=== PATIENT | male | born 1950 | race Caucasian/White ===

== ENCOUNTER 2020-09-20 15:20 | Emergency (ER) | payer OTHER ==
[2020-09-20] MEDS ORDERED: LACTATED RINGERS SOLUTION 1000 ML INFUS.BAG IV ONE (15:32)
[2020-09-20] MEDS ORDERED: ACETAMINOPHEN 1000 MG/100 ML VIAL (NON FORMULARY) IVPB ONE (15:32)
[2020-09-20 15:45] VITALS: BP 140/86; PULSE 91; TEMP 98.8; BMI 29.8
[2020-09-20] MEDS ORDERED: ACETAMINOPHEN INJECTION 100 ML IVPB ONE (15:46)
[2020-09-20 15:56] LABS: BASO % 0.5 % (0-2.0); HEMATOCRIT 37.1 % (35.4-49); HEMOGLOBIN 12.4 GM/dl (11.7-16.9); MCHC 33.3 g/dl (32.0-35.9); MEAN CELL VOLUME 99.1 fl (80-96); MEAN PLT VOLUME 7.6 fl (7.5-11.1); MONO % 11.1 % (3.8-10.2); NEUT % 63.4 % (42.8-82.8); PLATELET COUNT 262 K/MM3 (134-434); RBC 3.74 M/mm3 (4.00-5.60); RDW 11.9 % (11.9-15.9); WHITE BLOOD COUNT 6.1 K/mm3 (4.0-10.8)
[2020-09-20 16:10] LABS: ACTIVATED PTT 24.3 SECONDS (25.2-36.5)
[2020-09-20 16:14] LABS: INR 1.33 (0.82-1.09); PROTHROMBIN TIME (PATIENT) 14.6 SEC (10.2-13.0)
[2020-09-20 16:26] LABS: ALBUMIN 3.9 g/dl (3.4-5.0); BILIRUBIN,TOTAL 0.9 mg/dl (0.2-1); CALCIUM 8.8 mg/dl (8.5-10); POTASSIUM 4.1 mmol/L (3.5-5.1); TOT PROT 6.8 g/dl (6.4-8.2)
== END 2020-09-20 19:30 | disposition home or self-care (01) ==
LOC: FER 15:20
PROC: 3E033NZ Introduction of Analgesics, Hypnotics, Sedatives into Peripheral Vein, Percutaneous Approach (ICD-10-PCS; principal; 2020-09-20)
DX: K40.90 Unilateral inguinal hernia, without obstruction or gangrene, not specified as recurrent (principal)
CPT/HCPCS: 36415; 71045-TC-FY; 74177-TC; 80053; 81003; 83605; 83690; 84484; 85025; 85610; 85730; 87086; 93005; 99285-25; C9803; J0131; Q9967; U0003